=== PATIENT | female | born 1945 | race Caucasian/White ===

== ENCOUNTER 2021-07-22 05:20 | Inpatient (IN) | payer MEDICARE, BC ==
[2021-07-16 12:11] LABS: ALBUMIN 3.7 G/DL (3.4-5.0); ALBUMIN/GLOBULIN RATIO 0.9 (1.1-1.5); ALKALINE PHOSPHATASE 68 IU/L (46-116); BLOOD UREA NITROGEN 30 MG/DL (7-18); BUN/CREATININE RATIO 44.8 (6.6-38.0); CALCIUM 8.8 MG/DL (8.5-10.1); CHLORIDE 104 MMOL/L (99-107); CREATININE 0.67 MG/DL (0.40-0.90); PRE OP ALT 20 U/L (30-65); PRE OP ANION GAP 10 (8-16); PRE OP AST 17 U/L (10-37); PRE OP BILIRUB, TOTAL 0.3 MG/DL (0.0-1.0); PRE OP GLUCOSE 105 MG/DL (70-104); PRE OP POTASSIUM 4.2 MMOL/L (3.4-5.1); PRE OP SODIUM 142 MMOL/L (135-145); TOTAL CARBON DIOXIDE 28.1 MMOL/L (24-32); TOTAL PROTEIN 7.6 G/DL (6.4-8.2); eGFR 86 ML/MIN
[2021-07-16 12:26] LABS: BASOPHILS % (AUTO) 0.4 % (0-1); EOSINOPHILS % (AUTO) 0.4 % (0-6); LYMPHOCYTES # (AUTO) 2.1 X10'3 (1.1-4.8); LYMPHOCYTES % (AUTO) 29.1 % (21-51); MEAN CORPUSCULAR HEMOGLOBIN 30.2 PG (27.0-31.0); MEAN CORPUSCULAR HGB CONC 33.1 g/dL (33.0-36.5); MEAN CORPUSCULAR VOLUME 91.1 FL (78-98); MEAN PLATELET VOLUME 8.5 FL (7.4-10.4); MONOCYTES # (AUTO) 0.5 X10'3 (0-0.9); MONOCYTES % (AUTO) 7.2 % (2-12); NEUTROPHILS # (AUTO) 4.5 X10'3 (1.8-7.7); NEUTROPHILS % (AUTO) 62.9 % (42-75); PRE OP HEMATOCRIT 39.1 % (35.0-45.0); PRE OP PLATELET COUNT 258 X10'3 (140-440); RED BLOOD COUNT 4.29 X10'6 (4.20-5.60); RED CELL DISTRIBUTION WIDTH 15.9 % (11.5-14.5)
[2021-07-22] VITALS (17 sets, daily range): BP systolic 95–133; BP diastolic 37–73
[~2021-07-22] VITALS: Ht 160 cm; Wt 58.1 kg
[~2021-07-22 05:20] MED LIST: CALCIUM +VIT D; FISH OIL; FOLIC ACID; HYDR-3965 PO; IBUP-24 PO; LUTE1CAP5 PO; MULT-1085 PO; VITAMIN C; VITAMIN E; ZINC; vancomycin/NS 1 GM in NS 250 ML IV ONE
[2021-07-22] MEDS ORDERED: tranexamic acid inj. 1,000 MG in 0.7% saline 100 ML PMX IV ONE (05:30)
[2021-07-22] MEDS ORDERED: vancomycin/NS 1 GM in NS 250 ML IV ONE (05:30)
[2021-07-22] MEDS ORDERED: celeCOXIB 100mg capsule PO ONE (05:30)
[2021-07-22] MEDS ORDERED: acetaminophen 325mg tablet PO ONE (05:30)
[2021-07-22] MEDS ORDERED: oxyCODONE SR 10mg (sust. release) tab -2 tabs (20mg) PO ONE (05:30)
[2021-07-22] MEDS ORDERED: cefazolin/dext.iso 2gm/50ml IV ONE (05:30)
[2021-07-22] MEDS ORDERED: famotidine 20mg tablet PO ONE (05:30)
[2021-07-22] MEDS ORDERED: metoclopramide 5 mg/ml inj IV ONE (05:30)
[2021-07-22] MEDS ORDERED: gabapentin 300mg capsule PO ONE (05:30)
[2021-07-22] MEDS ORDERED: LIDOcaine 1% (10mg/ml) 2ml vial ONE (05:43)
[2021-07-22] MEDS: ringers solution, lacted 1,000 ML IV SCH ×2 (06:08→11:01)
[2021-07-22] MEDS ORDERED: ketorolac trometh. 30mg/ml inj. ONE (06:44)
[2021-07-22] MEDS ORDERED: vancomycin 1,000mg inj ONE (06:45)
[2021-07-22] MEDS ORDERED: cloNIDine hcl/PF 100mcg/ml inj ONE (06:45)
[2021-07-22] MEDS ORDERED: ROPIVAcaine 0.5% (5mg/ml) 30ml vial ONE (06:45)
[2021-07-22] MEDS ORDERED: epiNEPHrine 1 mg/ml inj ONE (06:45)
[2021-07-22] MEDS ORDERED: magnesium hydroxide 30ml (MOM) UD suspension PO PRN (06:50)
[2021-07-22] MEDS ORDERED: ondansetron/PF 4mg/2ml inj IV PRN ×2 (06:50→07:15)
[2021-07-22] MEDS ORDERED: HYDROcodone/acetaminophen 10/325mg tab PO PRN (06:50)
[2021-07-22] MEDS ORDERED: acetaminophen 325mg tablet PO PRN (06:50)
[2021-07-22] MEDS ORDERED: diphenhydrAMINE 25mg capsule PO PRN ×2 (06:50)
[2021-07-22] MEDS ORDERED: HYDROmorphone inj. 0.5 MG/0.5 ML DISP.SYRIN IV PRN (06:50)
[2021-07-22] MEDS ORDERED: bisacodyl 10mg suppository rectal RC PRN (06:50)
[2021-07-22] MEDS ORDERED: HYDROmorphone 1 mg/ml syringe IV PRN (06:50)
[2021-07-22] MEDS ORDERED: morphine 4 MG/ML inj SYRINge IV PRN (07:15)
[2021-07-22] MEDS ORDERED: fentaNYL/PF 50MCG/1 ML 2ML syringe IV PRN ×2 (07:15)
[2021-07-22] MEDS ORDERED: ketorolac tromethamine 15mg/ml inj. IV ONE (07:15)
[2021-07-22] MEDS ORDERED: labetalol 20mg/4ml (5mg/ml) syringe IV PRN (07:15)
[2021-07-22] MEDS ORDERED: acetaminophen 1,000mg/100ml IV 100 ML IV PRN (07:15)
[2021-07-22] MEDS ORDERED: ringers solution, lacted 1,000 ML IV SCH (07:15)
[2021-07-22] MEDS ORDERED: morphine 2 MG/ML inj. syringe IV PRN (07:15)
[2021-07-22] MEDS ORDERED: hydrALAZINE 20mg/ml inj. IV PRN (07:15)
[2021-07-22] MEDS ORDERED: LIDOcaine 2% (20mg/ml) 5ml vial ONE (07:33)
[2021-07-22] MEDS: ascorbic acid 500mg tablet PO SCH ×2 (08:00→20:24)
[2021-07-22] MEDS: gabapentin 300mg capsule PO SCH ×3 (08:00→20:53)
--- NOTE | 2021-07-22 08:45 | NUR ---
Received from OR via , accompanied by Anesthesiologist DR QUINONEZ and report given by Anesthesiolgist. AWAKE AND ORIENTED. VITALS STABLE. DRESSING DI. MINDY PAIN. SENSATION JUST ABOVE THE HIPS.
--- NOTE | 2021-07-22 10:05 | NUR ---
Report called to receiving nurse. Transferred via BED Belongings . Special Issues communicated to receiving nurse. AWAKE AND ORIENTED. VITALS STABLE. DRESSING DI. MINDY PAIN. TO SURGICAL RM 354C AT THIS TIME.
--- NOTE | 2021-07-22 10:20 | NUR ---
Patient in room PAS IN 900. I have received report from Sandi BARROS and had the opportunity to ask questions and assume patient care.
--- NOTE | 2021-07-22 10:58 | NUR ---
patient settled into room. Dressing . Knee immobilizer and Dorothy in place. No drainage observed from site. patient states pain is 2/10. Commenced on post op vitals will continue to monitor.
[2021-07-22] MEDS ORDERED: tranexamic acid inj. 600 MG in normal saline 100ml IV soln 100 ML IV ONE (12:00)
[2021-07-22] MEDS: HYDROcodone/acetaminophen 10/325mg tab PO PRN ×2 (12:20→16:47)
--- NOTE | 2021-07-22 12:22 | NUR ---
patient seen by Cris Whittington [employer] stated ok to give patient dilaudid and Trent for pain /. will continue to monitor patient
[2021-07-22] MEDS: potassium cl 20mEq in 1/2 NS 1,000 ML IV SCH ×3 (12:44→20:53)
[2021-07-22] MEDS ORDERED: tranexamic acid inj. 600 MG in normal saline 100ml IV soln 94 ML IV ONE (13:10)
[2021-07-22] MEDS: aspirin 325mg tablet PO SCH (14:12)
[2021-07-22] MEDS: ceFAZolin/D5W- 1GM premix 50 ML IV SCH ×2 (16:48→23:37)
--- NOTE | 2021-07-22 17:09 | NUR ---
patient has not yet voided. bladder scanned 572mls observed. patient has wick and emcouraged to drink. will continue to monitor.
--- NOTE | 2021-07-22 17:35 | NUR ---
patient encouraged to cough and deep breathe. managed to void 250mls so far.
--- NOTE | 2021-07-22 18:17 | NUR ---
Problems reprioritized. Patient report given, questions answered & plan of care reviewed with jayy BARROS.
[2021-07-22] MEDS: oxyCODONE IR 5mg (immed. release) tablet PO PRN (19:12)
[2021-07-22] MEDS: ondansetron/PF 4mg/2ml inj IV PRN (19:31)
[2021-07-22] MEDS ORDERED: vancomycin/NS 1 GM ADD-VANTAGE 250 ML IV SCH (20:00)
[2021-07-22] MEDS: sennosides 8.6mg tablet PO SCH (21:00)
[2021-07-23] MEDS: HYDROcodone/acetaminophen 10/325mg tab PO PRN (00:44)
[2021-07-23 03:00] VITALS: BP 128/68
[2021-07-23 03:30] VITALS: BP 99/66
[2021-07-23] MEDS: oxyCODONE IR 5mg (immed. release) tablet PO PRN ×4 (04:47→23:40)
[2021-07-23] MEDS: potassium cl 20mEq in 1/2 NS 1,000 ML IV SCH (05:49)
[2021-07-23] MEDS: ondansetron/PF 4mg/2ml inj IV PRN ×2 (05:49→13:11)
[2021-07-23 06:21] LABS: BASOPHILS % (AUTO) 0.3 % (0-1); EOSINOPHILS % (AUTO) 0.5 % (0-6); HEMATOCRIT 32.1 % (35.0-45.0); HEMOGLOBIN 10.7 g/dl (12.0-16.0); LYMPHOCYTES # (AUTO) 1.1 X10'3 (1.1-4.8); LYMPHOCYTES % (AUTO) 11.7 % (21-51); MEAN CORPUSCULAR HEMOGLOBIN 30.2 PG (27.0-31.0); MEAN CORPUSCULAR HGB CONC 33.4 g/dL (33.0-36.5); MEAN CORPUSCULAR VOLUME 90.6 FL (78-98); MEAN PLATELET VOLUME 8.2 FL (7.4-10.4); MONOCYTES # (AUTO) 1.2 X10'3 (0-0.9); MONOCYTES % (AUTO) 12.6 % (2-12); NEUTROPHILS # (AUTO) 7.1 X10'3 (1.8-7.7); NEUTROPHILS % (AUTO) 74.9 % (42-75); PLATELET COUNT 166 X10'3 (140-440); RED BLOOD COUNT 3.55 X10'6 (4.20-5.60); WHITE BLOOD COUNT 9.4 X10'3 (4.5-11.0)
--- NOTE | 2021-07-23 06:26 | NUR ---
Problems reprioritized. Patient report given, questions answered & plan of care reviewed with GINNY. Addendum: 07/23/21 at 0627 by Andre Hampton RN Amended: Links added.
[2021-07-23 06:38] LABS: ANION GAP 3 (8-16); CHLORIDE 99 MMOL/L (99-107); POTASSIUM 4.5 MMOL/L (3.5-5.1); SODIUM 129 MMOL/L (135-145); TOTAL CARBON DIOXIDE 27.3 MMOL/L (24-32)
[2021-07-23 07:00] VITALS: BP 122/63
--- NOTE | 2021-07-23 07:02 | NUR ---
Patient in room [facility] 354. I have received report from Keira BARROS and had the opportunity to ask questions and assume patient care.
[2021-07-23] MEDS ORDERED: proCHLORperazine 5mg tablet PO PRN (08:00)
--- NOTE | 2021-07-23 08:25 | NUR ---
Page sent to RT.... 271R Kendal DUPREE: rachel RT orders. thanks! :) Addendum: 07/23/21 at 0839 by Malika Castellanos RN Amended: Links added.
[2021-07-23] MEDS: multivitamins, therapeutics tablet PO SCH (08:28)
[2021-07-23] MEDS: beta-carotene(A) w/C & E + minerals tab PO SCH (08:28)
[2021-07-23] MEDS: gabapentin 300mg capsule PO SCH ×3 (08:30→21:00)
[2021-07-23] MEDS: ascorbic acid 500mg tablet PO SCH ×2 (08:30→20:00)
[2021-07-23] MEDS: aspirin 325mg tablet PO SCH (08:30)
[2021-07-23 11:00] VITALS: BP 112/59
--- NOTE | 2021-07-23 18:07 | NUR ---
Problems reprioritized. Patient report given, questions answered & plan of care reviewed with FIORELLA Snyder.
--- NOTE | 2021-07-23 18:30 | NUR ---
Patient in room [facility] 354. I have received report from FRANK BARROS and had the opportunity to ask questions and assume patient care.
[2021-07-23 19:41] VITALS: BP 116/60
[2021-07-23] MEDS: celeCOXIB 100mg capsule PO SCH (20:00)
[2021-07-23] MEDS: sennosides 8.6mg tablet PO SCH (21:00)
[2021-07-23 23:30] VITALS: BP 120/58
--- NOTE | 2021-07-24 06:06 | NUR ---
Patient in room [facility] 354. I have received report from Magalie BARROS and had the opportunity to ask questions and assume patient care.
[2021-07-24] MEDS: oxyCODONE IR 5mg (immed. release) tablet PO PRN ×5 (06:10→23:44)
--- NOTE | 2021-07-24 06:27 | NUR ---
Patient in room [facility] 354. I have received report from MARLENE BARROS and had the opportunity to ask questions and assume patient care.
--- NOTE | 2021-07-24 06:30 | NUR ---
Problems reprioritized. Patient report given, questions answered & plan of care reviewed with AWAIS BARROS.
[2021-07-24 06:35] LABS: BASOPHILS % (AUTO) 0.1 % (0-1); EOSINOPHILS % (AUTO) 0.2 % (0-6); HEMATOCRIT 33.2 % (35.0-45.0); HEMOGLOBIN 11.1 g/dl (12.0-16.0); LYMPHOCYTES # (AUTO) 0.9 X10'3 (1.1-4.8); LYMPHOCYTES % (AUTO) 8.5 % (21-51); MEAN CORPUSCULAR HEMOGLOBIN 30.3 PG (27.0-31.0); MEAN CORPUSCULAR HGB CONC 33.4 g/dL (33.0-36.5); MEAN CORPUSCULAR VOLUME 90.9 FL (78-98); MEAN PLATELET VOLUME 8.1 FL (7.4-10.4); MONOCYTES # (AUTO) 1.4 X10'3 (0-0.9); MONOCYTES % (AUTO) 13.8 % (2-12); NEUTROPHILS # (AUTO) 8.1 X10'3 (1.8-7.7); NEUTROPHILS % (AUTO) 77.4 % (42-75); PLATELET COUNT 151 X10'3 (140-440); RED BLOOD COUNT 3.66 X10'6 (4.20-5.60); RED CELL DISTRIBUTION WIDTH 14.9 % (11.5-14.5); WHITE BLOOD COUNT 10.5 X10'3 (4.5-11.0)
[2021-07-24] MEDS: multivitamins, therapeutics tablet PO SCH (08:00)
[2021-07-24] MEDS: gabapentin 300mg capsule PO SCH ×3 (08:00→21:00)
[2021-07-24] MEDS: ascorbic acid 500mg tablet PO SCH ×2 (08:00→19:46)
[2021-07-24] MEDS: beta-carotene(A) w/C & E + minerals tab PO SCH (08:00)
[2021-07-24] MEDS: aspirin 325mg tablet PO SCH (08:19)
[2021-07-24] MEDS: celeCOXIB 100mg capsule PO SCH ×2 (08:27→19:44)
[2021-07-24 11:00] VITALS: BP 108/60
[2021-07-24 12:47] VITALS: BP 104/74
--- NOTE | 2021-07-24 17:41 | NUR ---
patient up in chair working with PT managed to ambulate 75'. see PT note. medicated with OxyIR x2 with good effect. patient requesting that this be prescribed for her on DC. Cris medina aware, will pass on to next staff also .
[2021-07-24 18:00] VITALS: BP 113/57
--- NOTE | 2021-07-24 18:30 | NUR ---
Patient in room [facility]. I have received report from AWAIS BARROS and had the opportunity to ask questions and assume patient care.
[2021-07-24] MEDS ORDERED: docusate sod 100mg capsule PO SCH (20:00)
[2021-07-24] MEDS: sennosides 8.6mg tablet PO SCH (21:00)
[2021-07-25] VITALS: BP 118/57
[2021-07-25] MEDS: oxyCODONE IR 5mg (immed. release) tablet PO PRN ×2 (06:00→10:32)
--- NOTE | 2021-07-25 06:23 | NUR ---
Problems reprioritized. Patient report given, questions answered & plan of care reviewed with SARAH BARROS.
--- NOTE | 2021-07-25 06:30 | NUR ---
Patient in room [facility] 354. I have received report from Carol Medina RN and had the opportunity to ask questions and assume patient care.
[2021-07-25 06:34] LABS: BASOPHILS % (AUTO) 0.3 % (0-1); EOSINOPHILS # (AUTO) 0.2 X10'3 (0-0.9); EOSINOPHILS % (AUTO) 2.3 % (0-6); HEMATOCRIT 32.6 % (35.0-45.0); HEMOGLOBIN 10.9 g/dl (12.0-16.0); LYMPHOCYTES # (AUTO) 1.1 X10'3 (1.1-4.8); LYMPHOCYTES % (AUTO) 13.9 % (21-51); MEAN CORPUSCULAR HEMOGLOBIN 30.7 PG (27.0-31.0); MEAN CORPUSCULAR HGB CONC 33.3 g/dL (33.0-36.5); MEAN CORPUSCULAR VOLUME 92.1 FL (78-98); MEAN PLATELET VOLUME 8.4 FL (7.4-10.4); MONOCYTES # (AUTO) 1.1 X10'3 (0-0.9); MONOCYTES % (AUTO) 13.5 % (2-12); NEUTROPHILS # (AUTO) 5.8 X10'3 (1.8-7.7); PLATELET COUNT 160 X10'3 (140-440); RED BLOOD COUNT 3.54 X10'6 (4.20-5.60); WHITE BLOOD COUNT 8.3 X10'3 (4.5-11.0)
[2021-07-25] MEDS: celeCOXIB 100mg capsule PO SCH (07:48)
[2021-07-25] MEDS: aspirin 325mg tablet PO SCH (07:48)
[2021-07-25 08:00] VITALS: BP 128/59
[2021-07-25] MEDS: multivitamins, therapeutics tablet PO SCH (08:00)
[2021-07-25] MEDS: beta-carotene(A) w/C & E + minerals tab PO SCH (08:00)
[2021-07-25] MEDS: ascorbic acid 500mg tablet PO SCH (08:00)
[2021-07-25] MEDS: gabapentin 300mg capsule PO SCH (08:00)
[2021-07-25 11:00] VITALS: BP 110/57
[2021-07-25] MEDS ORDERED: ASPI-1 PO (11:27)
[2021-07-25] MEDS ORDERED: OXYC-658 PO (11:51)
[2021-07-25 12:10] LABS: ALBUMIN 2.4 G/DL (3.4-5.0); ANION GAP 9 (8-16); BLOOD UREA NITROGEN 13 MG/DL (7-18); BUN/CREATININE RATIO 20.3 (6.6-38.0); CALCIUM 8.1 MG/DL (8.5-10.1); CHLORIDE 104 MMOL/L (99-107); CREATININE 0.64 MG/DL (0.40-0.90); GLUCOSE 97 MG/DL (70-104); POTASSIUM 4.3 MMOL/L (3.5-5.1); SODIUM 143 MMOL/L (135-145); TOTAL CARBON DIOXIDE 30.5 MMOL/L (24-32); eGFR > 90 ML/MIN
--- NOTE | 2021-07-25 13:15 | NUR ---
Pt DC to home with family. pt's son picking her up and caring for her. pt is A & o x4 and in no apparent distress. pt verbalizes understanding of ALL Dc orders. pt educated on NANO dressing care and removal. pt understands and able to teach back precautions and restrictions for her post-op. Pt's medications given before hand, but oxy meds called in last minute before pt's DC. pt's belongings packed, Pt's IV removed intact. pt wheeled to the front where son took her home.
== END 2021-07-25 13:03 | disposition home health service (06) | DRG 470 ==
LOC: PAS 05:20 → PAS IN 06:51 → SUR 3N 10:13
PROVIDERS: ADMIT Orthopaedic Surgery; ATTEND Orthopaedic Surgery
PROC: 0SR906Z Replacement of Right Hip Joint with Oxidized Zirconium on Polyethylene Synthetic Substitute, Open Approach (ICD-10-PCS; principal; 2021-07-22 07:17)
DX: M16.11 Unilateral primary osteoarthritis, right hip (principal); E87.1 Hypo-osmolality and hyponatremia; Z79.82 Long term (current) use of aspirin; Z79.899 Other long term (current) drug therapy
CPT/HCPCS: 36415; 72170; 80048; 80051; 80053; 85025; 86885; 86900; 86901; 87081; 94760; 97110; 97116; 97161; 97530; 97535; A7000; C1776; C9803; G0378; J0171; J0690; J0735; J1170; J1885; J2405; J2765; J2795; J3370; J3480; J3490; J7120; U0003; U0005